=== PATIENT | male | born 1960 | race Caucasian/White ===

== ENCOUNTER → 2023-07-13 | Outpatient (CLI) | payer BC ==
--- NOTE | 2023-07-13 12:46 | MR ---
EXAMINATION TYPE: MR knee LT wo con DATE OF EXAM: 07/13/2023 COMPARISON: Left knee radiograph 06/23/2023 HISTORY: Left knee pain and swelling over 6 months TECHNIQUE: Multiplanar, multisequence imaging of the left knee is performed without contrast. FINDINGS: Medial meniscus: Intact. Medial compartment cartilage: Partial-thickness thinning of the medial compartment cartilage. Medial collateral ligament: Intact. Lateral meniscus: Intact. Lateral compartment cartilage: Partial-thickness thinning and fissuring of the lateral compartment ca rtilage. Lateral collateral ligament: Intact. Patellofemoral alignment: Normal. Patellofemoral compartment cartilage: Normal. Extensor mechanism: Normal. Anterior cruciate ligament: Intact. Posterior cruciate ligament: Intact. Bone marrow: Small amount of degenerative reactive bone marrow edema in the medial femoral condyle. Soft tissues: Normal. No joint effusion. Small Churchill's cyst. Neurovascular: Normal. IMPRESSION: 1. Medial and lateral compartment mild-moderate chondromalacia. 2. Bone marrow edema within the medial femoral condyle, likely reactive. Alternatively, nondisplaced insufficiency fracture would have similar appearance. 3. Intact cruciates, collaterals, and menisci.
== END | disposition home or self-care (01) ==
LOC: RADMRIMAIN 10:35
PROVIDERS: ATTEND Orthopaedic Surgery
DX: M94.262 Chondromalacia, left knee (principal); R60.1 Generalized edema